=== PATIENT | male | born 1995 | race Caucasian/White ===

== ENCOUNTER 2018-01-23 13:08 | Observation (INO) ==
--- NOTE | 2018-01-23 14:09 | ERNOTE ---
Abdominal HPI - Narrative Date of Service: 01/23/18 - General Chief Complaint: Abdominal Pain Time Seen by Provider: 01/23/18 13:56 Source: patient Exam Limitations: no limitations - Immun/Allergies/Home Medications Immunizatons: IMMUNIZATION HX Immunizations Up to Date Yes History of Influenza Vaccine No Hx Pneumococcal Vaccination No Allergies/Adverse Reactions: Allergies No Known Allergies Allergy (Verified 01/23/18 18:56) Home Medications: HOME MEDICATIONS Dicyclomine HCl [Bentyl] 10 mg PO TID #30 capsule 01/21/18 [Last Taken Unknown] Lansoprazole/Amoxiciln/Clarith [Prevpac Patient Pack] 1 pkt PO BID #27 pkg 01/21 [Last Taken Unknown] - Pain Score Pain Score #1 Pain Score: 8 Abdominal Pain Onset Location: RUQ - History of Present Illness Narrative: 22yo, M, presents to ER with R. lower chest pain/RUQ pain, which has been present since 01/19/18. States he took his weight lifting supplement E [place]-T, [place] Mass supplements at the same time. [place] as though the pills "got stuck ", he drank a lot of water, which improved, but did not resolve the symptoms. Then on 01/19/18 felt like pain steadily increased. He was seen at the [facility] 01/20/18 and dx with gastroenteritis and started on Zantac. He then returned the followed day, 01/21/18, and was sent to ER. He was dx with mono and CT scan performed. He was started on tx for H. Pylori, which he has been taking until today. Last pm and today, symptoms felt worse and kept him up all night with pain, which he describes "severe burning." Has not drank any fluids since last pm, due to the discomfort. Last solid food intake was 01/19/18. Date (Duration): 01/19/18 Timing: getting worse Quality: severe, burning Modifying Factors - (Worsens): Present: other - drinking fluids Associated Symptoms: Present: vomiting - dark green x1 daily. Absent: diarrhea- gross blood, diarrhea-mucous, fatigue, fever/chills Review of Systems - Review of Systems Constitutional: Absent: fever, chills, fatigue Respiratory: Present: cough. Absent: shortness of breath, wheezing Cardiology: Present: chest pain - R. lower. Absent: palpitations, edema Gastrointestinal/Abdominal: Present: nausea, vomiting, abdominal pain - RUQ. Absent: diarrhea Genitourinary: Absent: frequency, pain, dysuria, hematuria Musculoskeletal: Absent: back pain Skin: Absent: rash - Patient's Past Medical History Patient History - Medical: No pertinent hx Patient History - Cardiac/Respiratory: No pertinent hx Patient History - Cancer: No Hx of Cancer Patient History - Surgical Procedures: No surgical history Patient History - Other: None - Family History Mother Family History - Medical: No pertinent hx Family History - Cardiac/Respiratory: No pertinent hx Family History - Cancer: No pertinent family hx Father Family History - Medical: No pertinent hx Family History - Cardiac/Respiratory: No pertinent hx Family History - Cancer: No pertinent family hx - Social History Psych History: No pertinent hx Alcohol Use: none Drug Use: none - Immunizations Immunizations Up to Date: Yes Hx Pneumococcal Vaccination: No History of Influenza Vaccine: No Physical Exam - Physical Exam General Appearance: Present: wd/wn, alert Respiratory: Present: no respiratory distress, normal breath sounds. Absent: rales, rhonchi, wheezing Cardiovascular/Chest: Present: regular rate, rhythm, no murmur Gastrointestinal/Abdominal: Present: normal bowel sounds, soft, no organomegaly , tenderness - epigastric region. Absent: rebound, McBurney sign Neurological Exam: Present: alert, oriented, normal mood/affect Skin Exam: Present: normal color, warm/dry ED Progress - Date and Time Seen: Date and Time: 01/23/18 15:00 Reported symptoms suggestive of gastric ulcer. Cardiac evaluation performed due to reported pain to epigastric region and extending up sternal region. Troponin returned elevated at 1.184. Reviewed EKG and Troponin with Dr. Atwood, he feels this is unlikely to be cardiac related and recommended repeat Troponin in 3 hours from initial test. 01/23/18 16:05 Reviewed labs and xray results with pt and mother. He reports complete resolution with GI cocktail administered earlier today for approx 25 min, then pain gradually increased. Discussed elevated Troponin and recommendations of Dr. Atwood to repeat Troponin in 3 hours 01/23/18 17:55 Repeat Troponin 1.196. Discussed with Dr. Atwood, he recommended contacting precision filer hand doctor for admission. 01/23/18 18:00 Reviewed HPI, lab results and EKG findings with Dr. Arriaga. He requests pt be admitted to observation with repeat trop and ekg q6h. He agrees that symptoms seem more GI in nature and requests to continue with Carafate and Protonix. Discussed all results with pt and mtr, along with POC for admission to OBS. - Results and Orders Patient's Lab Results:: I have reviewed the patient's lab results. Results and Orders: Laboratory Tests 01/23/18 14:23 Sodium 140 Plasma Sodium 140 Potassium 3.9 Chloride 99 Carbon Dioxide 27.1 Anion Gap 17.8 H BUN 18 Creatinine 1.54 H Est GFR (Non-Af Amer) 59 L BUN/Creatinine Ratio 11.7 Random Glucose 93 Calcium 9.6 Calcium Adj for Albumin 9.4 Total Bilirubin 0.8 AST 12 ALT 30 Alkaline Phosphatase 71 Troponin I 0.184 H* C-Reactive Prot, Quant 16.9 H Total Protein 8.9 H Albumin 3.8 Amylase 43 Lipase 92 Laboratory Tests 01/23/18 17:25 Troponin I 0.196 H* Laboratory Tests 01/23/18 01/23/18 14:23 14:23 WBC 9.6 RBC 5.65 Hgb 16.1 Hct 46.7 MCV 82.7 MCH 28.5 MCHC 34.5 RDW 13.6 Plt Count 265 MPV 8.7 Neutrophils % (Manual) 72 Lymphocytes % (Manual) 10 L Monocytes % (Manual) 18 H Neutrophils # (Manual) 6.9 H Lymphocytes # (Manual) 1.0 L Monocytes # (Manual) 1.7 H Platelet Estimate Normal RBC Morphology Normal ESR 55 H Laboratory Tests 01/23/18 16:00 Urine Opiates Screen Negative Barbiturate Screen Negative Ur Phencyclidine Scrn Negative Urine Amphetamine Negative U Benzodiazepines Scrn Negative Urine Cocaine Screen Negative Urine Marijuana (THC) Negative - Vital Signs Patient's Vital Signs:: I have reviewed the patient's vital signs. Vital Signs: Vital Signs 01/23/18 13:09 Temperature 36.8 C Pulse Rate 81 Respiratory 12 Rate Blood Pressure 140/71 O2 Sat by Pulse 95 Oximetry Selected Entries 01/23/18 18:00 Temperature 38.0 C H Temperature Temporal Artery Source Scan Pulse Rate 84 Respiratory 16 Rate Blood Pressure 142/77 Blood Pressure 98 Mean O2 Sat by Pulse 97 Oximetry Oxygen Delivery Room Air Method - EKG EKG: NSR, nonspecific ST T wave changes EKG read: Reviewed by me - and Dr. Atwood - X-Ray X-Ray #1 X-Ray: chest Interpretation: Reviewed by me X-ray Comments: [facility] PATIENT RADIOLOGY STUDY REPORT Patient Patient Name:SUSIE PADILLA Date: 1995 Sex: M Order Number: [id number] Unique Exam ID: [id number] Exam Requested: ABDCOMWDEC - Abdomen Flat W/ Upright * Date Scheduled: 01-23-2018 03:02 PM Study Priority: Requesting Service: Requesting Physician: Lakesha Goodwin Reason for Exam: abd pain Radiological Report : [place] [address] NAME: SUSIE PADILLA : 1995 MR #: [id number] CC: LOC: ADM DATE: X-RAY REPORT [id number] RAD/Abdomen Flat W/ Upright * Exam Date: 01/23/2018 15:02 Ordering Physician: Lakesha Goodwin HISTORY: abd pain TWO VIEW ABDOMEN / ABDOMINAL SERIES COMPARISON: 01/21/2018 Technique: Supine and erect AP projections of the abdomen and pelvis were obtained. Findings: There are small amounts of gas identified within the bowel. I do not see evidence for gaseous dilatation of the bowel, air-fluid levels, or free air. There is a small amount residual oral contrast within the colon from a prior CT scan dated 01/21/2018. The visualized lung bases are clear. I am not convinced of calcified radiodensities overlying the kidneys. IMPRESSION: 1. NONSPECIFIC BOWEL GAS PATTERN Electronically signed by Harshal Phelps M.D.. Harshal Phelps MD Dict: 01/23/18 1544 Typed: 01/23/18 1544/ 01/23/18 1547 01/23/18 1550 , Approved by: Harshal Phelps Approval Date: 01-23-2018 Approval Time: 03:44 PM THIS REPORT WAS RECEIVED FROM THE [employer] SYSTEM - Progress/Reassessment Chief Complaint: Abdominal Pain Progress:: Unchanged Departure Clinical Impression: Gastritis Qualifiers: Gastritis type: unspecified gastritis Chronicity: acute Gastritis bleeding: without bleeding Qualified Code(s): K29.00 - Acute gastritis without bleeding Chest pain Qualifiers: Chest pain type: unspecified Qualified Code(s): R07.9 - Chest pain, unspecified - Departure Disposition: Short Term Hospital Inpatient Condition: Fair
[2018-01-23] MEDS ORDERED: SUCRALFATE 1 G/10 ML UDC PO ONE ×2 (14:15→17:42)
[2018-01-23] MEDS ORDERED: MAG HYDROX/ALUMINUM HYD/SIMETH 30 ML UDC PO ONE ×2 (14:15→17:42)
[2018-01-23] MEDS ORDERED: LIDOCAINE HCL 20 ML UDC PO ONE (14:15)
[2018-01-23] MEDS ORDERED: NORMAL SALINE 1,000 ML IV ONE ×2 (14:17→16:12)
[2018-01-23 14:32] LABS: Hematocrit 46.7 % (42.0-52.0); Hemoglobin 16.1 gm/dL (13.5-18.0); Mean Cell Volume 82.7 fl (78-100); Mean Corpuscular Hemoglobin 28.5 pg (27-31); Mean Corpuscular Hgb Conc 34.5 g/dl (32-36); Mean Platelet Volume 8.7 fl (6.0-9.5); Platelet Count 265 K/mm3 (150-450); Red Blood Count 5.65 M/mm3 (4.7-6.0); Red Cell Distribution Width 13.6 % (11.5-14.0); White Blood Count 9.6 K/mm3 (4.0-10.5)
[2018-01-23 14:39] LABS: Total Cells Counted 100
[2018-01-23 14:50] LABS: Albumin * 3.8 gm/dl (3.4-5.0); Anion Gap 17.8 mmol/L (6.8-13.8); BUN/Creatinine Ratio 11.7 (9.0-21.6); Bilirubin, Total 0.8 mg/dL (0.0-1.1); Ca. Corrected For Albumin 9.4 mg/dL (8.4-10.2); Calcium * 9.6 mg/dL (7.9-10.9); Carbon Dioxide 27.1 mmol/L (24-32.6); Potassium 3.9 mmol/L (3.4-4.6); Total Protein 8.9 gm/dL (6.2-8.2)
[2018-01-23 14:51] LABS: Troponin I 0.184 ng/ml (0.00-0.10)
[2018-01-23 14:58] LABS: CRP 16.9 mg/dL (0.0-0.9)
[2018-01-23 15:17] LABS: Lymphocyte 10 % (20-51); Monocyte 18 % (0-9); Neutrophil 72 % (42-75); Neutrophil # 6.9 K/mm3 (1.3-6.0); Platelet Estimate Normal (NORMAL); RBC Morphology Normal (NORMAL)
[2018-01-23] MEDS ORDERED: PANTOPRAZOLE SODIUM 40 MG TABLET.EC PO ONE (16:15)
[2018-01-23 16:18] LABS: Cocaine Ur Negative (NEGATIVE); Urine Barbiturate Negative (NEGATIVE); Urine Benzodiazepines Negative (NEGATIVE); Urine Opiates Negative (NEGATIVE); Urine PCP Negative (NEGATIVE); Urine THC Negative (NEGATIVE)
[2018-01-23] MEDS ORDERED: PANTOPRAZOLE SODIUM 40 MG in NORMAL SALINE 100 ML IV ONE (16:22)
[2018-01-23] MEDS ORDERED: RINGER'S SOLUTION,LACTATED 1,000 ML IV ONE (19:22)
--- NOTE | 2018-01-23 19:39 | HP ---
Chief Complaint - Chief Complaint Date of Service: 01/23/18 Time of Service: 19:38 Chief Complaint: epigastric pain History of Present Illness: 22yo, M, without any prior medical history presented to ER with right lower chest pain, which has been present since 01/19/18. Pt states that on this day he took his weight lifting supplement, E [place]-T, [place] and felt as though the pills "got stuck", he drank a lot of water, which improved, but did not resolve the symptoms the pain since then steadily increased. He was seen at the [facility] 01/20/18 and dx with gastroenteritis and started on Zantac. He then returned the followed day, 01/21/18, and was sent to ER. He was dx with mono and CT scan performed which did not show any abnormalities. He was started on tx for H. Pylori, which he has been taking until today. Last pm and today, symptoms felt worse and kept him up all night with pain, which he describes "severe burning." Has not drank any fluids since last pm, due to the discomfort. Last solid food intake was 01/19/18. Pt denies any other associated symptoms, he has been taking the above medications as prescibed. He states that nothing alleviates the pain, although any type of intake exacerbates the pain rating it a 9/10 and burning in nature without radiation. In the ER pt was still without pain relief. Laboratory findings of DIAMOND, Troponin was found to be elevated at 0.184 on repeat it was actually even more elevated at 0.196. EKG NSR, nonspecific ST T wave changes. Due to his elevated and increasing enzymes he will be admitted for dehydration with DIAMOND and elevated troponin. - Patient's Past Medical History Patient History - Medical: No pertinent hx Patient History - Cardiac/Respiratory: No pertinent hx Patient History - Cancer: No Hx of Cancer Patient History - Surgical Procedures: No surgical history Patient History - Other: None - Family History Mother Family History - Medical: No pertinent hx Family History - Cardiac/Respiratory: No pertinent hx Family History - Cancer: No pertinent family hx Father Family History - Medical: No pertinent hx Family History - Cardiac/Respiratory: No pertinent hx Family History - Cancer: No pertinent family hx - Social History Living Situations: significant other Psych History: No pertinent hx Smoking Status: Never smoker Have you smoked in the past 12 months: No Alcohol Use: none Drug Use: none - Immunizations Immunizations Up to Date: Yes Hx Pneumococcal Vaccination: No History of Influenza Vaccine: No Review Of Systems (GEN) - Review of Systems Generalized/Overall Review: Present: No Symptoms Reported EENTM: Present: No Symptoms Reported Respiratory: Present: No Symptoms Reported. Absent: Cough, Shortness of Breath Cardiac: Present: Chest Pain - Right epigastric buring, worse with intake. Absent: Edema, Palpitations Abdominal: Absent: Nausea, Vomiting, Hematemesis, Abdominal Pain, Constipation, Diarrhea Genitourinary: Present: No Symptoms Reported Musculoskeletal: Present: No Symptoms Reported Neurological: Present: No Symptoms Reported Skin: Present: No Symptoms Reported Endocrine: Present: No Symptoms Reported Allergies/Adverse Reactions: Allergies Allergy/AdvReac Type Severity Reaction Status Date / Time No Known Allergies Allergy Verified 01/23/18 18:56 Home Medications: HOME MEDICATIONS Dicyclomine HCl [Bentyl] 10 mg PO TID #30 capsule 01/21/18 [Last Taken Unknown] Lansoprazole/Amoxiciln/Clarith [Prevpac Patient Pack] 1 pkt PO BID #27 pkg 01/21 [Last Taken Unknown] Exam - Exam Vital Signs: Vital Signs - Last Taken Temp 37.0 C 01/23/18 18:58 Pulse 73 01/23/18 18:58 Resp 16 01/23/18 18:58 BP 151/83 01/23/18 18:58 Pulse Ox 99 01/23/18 18:58 Constitutional: Present: Alert, Oriented x3, Cooperative, No distress ENT Exam: Present: normal ENT inspection, hearing grossly normal, pharynx normal , TMs normal Eye Exam: bilateral eye: normal inspection Back Exam: Present: normal inspection, no CVA tenderness, no vertebral tenderness Respiratory: Present: chest non-tender, lungs clear, normal breath sounds, no respiratory distress, no accessory muscle use Cardiovascular/Chest: Present: normal peripheral pulses, regular rate, rhythm, no chest tenderness, no edema, no gallop, no JVD, no murmur Peripheral Pulses: dorsalis-pedis (R): 2+, dorsalis-pedis (L): 2+, radial (R): 2 +, radial (L): 2+ Abdomen: Present: Normal bowel sounds, soft, nontender, nondistended, no rebound tenderness, no hepatospenomegaly, no masses Extremity: Present: normal range of motion, non-tender, normal inspection, no pedal edema, no calf tenderness, normal capillary refill Skin Exam: Present: normal color, warm/dry, no cyanosis Lymphatic: Present: no adenopathy Neurologic: Present: no motor/sensory deficits, alert, oriented x 3 Appearance: Present: appropriate appearance, appropriate insight, neat, no memory impairment Eye contact: Present: cooperative, good eye contact, normal speech Thoughts: Present: normal thought pattern, no apparent hallucination Diagnostic Studies: Laboratory Results Laboratory Tests 01/23/18 01/23/18 01/23/18 14:23 14:23 14:23 WBC 9.6 Hgb 16.1 Hct 46.7 Plt Count 265 Lymphocytes % (Manual) 10 L Monocytes % (Manual) 18 H Neutrophils # (Manual) 6.9 H Lymphocytes # (Manual) 1.0 L Monocytes # (Manual) 1.7 H ESR 55 H Sodium 140 Potassium 3.9 Carbon Dioxide 27.1 Anion Gap 17.8 H BUN 18 Creatinine 1.54 H Calcium Adj for Albumin 9.4 Total Bilirubin 0.8 AST 12 ALT 30 Alkaline Phosphatase 71 Troponin I 0.184 H* C-Reactive Prot, Quant 16.9 H Total Protein 8.9 H Albumin 3.8 Amylase 43 Lipase 92 01/23/18 17:25 WBC Hgb Hct Plt Count Lymphocytes % (Manual) Monocytes % (Manual) Neutrophils # (Manual) Lymphocytes # (Manual) Monocytes # (Manual) ESR Sodium Potassium Carbon Dioxide Anion Gap BUN Creatinine Calcium Adj for Albumin Total Bilirubin AST ALT Alkaline Phosphatase Troponin I 0.196 H* C-Reactive Prot, Quant Total Protein Albumin Amylase Lipase Assessment/Plan - Assessment/Plan (1) Dyspepsia Assessment: Unclear etiology from this point, likely stemming from episode of "pills getting stuck" with an erosive nature resulting in the pts pain. Has been treated ineffectively with PPI and prevepac. Will continue IV protonix while in the hospital since pt is still having severe pain with swallowing. reported minimal pain relief with GI cocktail. May need follow up with GI for UGI. -clear liquids -IV protonix -repeat GI cocktail -IV Toradol x1 Problem: Acute (2) Elevated troponin Assessment: Unclear etiology, however do not believe it is related to cardiac in nature, although given pt history of workout supplements cannot completely exclude it. Will recheck troponin Q6H and EKG, place on cafeteria monitor. -troponin Q6H -Repeat EKG -telel Problem: Acute (3) Dehydration Assessment: Pt reports PO intake since development of pain on 01/19/18. Laboratory values on revealed creat of 1.63, now 1.54. Will hydrate with an additional 1L LR and maintain a rate of 125ml/hr. Recheck labs in am. -cmp in am -1L LR bolus -MIVF 125ml/hr Problem: Acute (4) DIAMOND (acute kidney injury) Assessment: as above with dehydration Problem: Acute (5) Mononucleosis Assessment: Conservative management. Tylenol PRN for fevers and pain. Problem: Acute
[2018-01-23] MEDS ORDERED: KETOROLAC TROMETHAMINE 30 MG/ML VIAL IV ONE (19:47)
[2018-01-23] MEDS ORDERED: ACETAMINOPHEN 325 MG TABLET PO PRN (19:54)
[2018-01-23] MEDS ORDERED: LIDOCAINE HCL 20 ML UDC MM ONE (21:00)
[2018-01-23] MEDS ORDERED: BELLADONNA ALKALOIDS/PHENOBARB 60 ML BTL PO ONE (21:00)
--- NOTE | 2018-01-24 00:30 | PN ---
Progess Note - Interim Date: 01/24/18 Time: 00:25 Narrative: 01/24/18 00:25 Pt troponin continues to rise, not high enough to be consistent ACS, although cannot completely exclude. Pt continues to have pain to right mid epigastric area. No new EKG findings. Reports almost complete pain relief with Toradol injection, given this and increased inflammatory markers etiology is more consistent with pericarditis. I personally called the on-call hospitalist at [facility] to discuss case with, he recommended getting a D- Dimer and CTA to r/o PE. Pt remains hymodynamically stable. Rates pain 7/10 on right side, same as before. Will repeat EKG and troponin in 6H.
[2018-01-24] MEDS: RINGER'S SOLUTION,LACTATED 1,000 ML IV PRN ×3 (01:25→16:25)
[2018-01-24] MEDS ORDERED: KETOROLAC TROMETHAMINE 30 MG/ML VIAL IV ONE (02:00)
[2018-01-24 05:26] LABS: Hematocrit 39.2 % (42.0-52.0); Hemoglobin 13.3 gm/dL (13.5-18.0); Mean Cell Volume 82.9 fl (78-100); Mean Corpuscular Hemoglobin 28.1 pg (27-31); Mean Corpuscular Hgb Conc 33.9 g/dl (32-36); Mean Platelet Volume 8.6 fl (6.0-9.5); Platelet Count 208 K/mm3 (150-450); Red Blood Count 4.73 M/mm3 (4.7-6.0); Red Cell Distribution Width 13.4 % (11.5-14.0); White Blood Count 8.4 K/mm3 (4.0-10.5)
[2018-01-24 05:31] LABS: Total Cells Counted 100
[2018-01-24 05:50] LABS: Albumin * 2.9 gm/dl (3.4-5.0); Anion Gap 14.2 mmol/L (6.8-13.8); BUN/Creatinine Ratio 13.3 (9.0-21.6); Bilirubin, Total 0.6 mg/dL (0.0-1.1); Ca. Corrected For Albumin 9.4 mg/dL (8.4-10.2); Calcium * 8.8 mg/dL (7.9-10.9); Carbon Dioxide 26.6 mmol/L (24-32.6); Potassium 3.8 mmol/L (3.4-4.6); Total Protein 6.8 gm/dL (6.2-8.2)
[2018-01-24 05:52] LABS: Troponin I 0.3 ng/ml (0.00-0.10)
[2018-01-24] MEDS ORDERED: KETOROLAC TROMETHAMINE 30 MG/ML VIAL IV PRN (06:23)
[2018-01-24 06:27] LABS: Eosinophil 1 % (0-3); Lymphocyte 12 % (20-51); Monocyte 13 % (0-9); Neutrophil 74 % (42-75); Neutrophil # 6.2 K/mm3 (1.3-6.0); Platelet Estimate Normal (NORMAL); RBC Morphology Normal (NORMAL)
[2018-01-24] MEDS: SUCRALFATE 1 G/10 ML UDC PO SCH ×3 (07:34→16:21)
[2018-01-24] MEDS ORDERED: PANTOPRAZOLE SODIUM 40 MG in NORMAL SALINE 50 ML IV ONE (09:00)
[2018-01-24] MEDS ORDERED: LIDOCAINE HCL 20 ML UDC MM ONE (09:21)
[2018-01-24 11:02] LABS: Hematocrit 40.3 % (42.0-52.0); Hemoglobin 13.8 gm/dL (13.5-18.0); Mean Cell Volume 83.1 fl (78-100); Mean Corpuscular Hemoglobin 28.5 pg (27-31); Mean Corpuscular Hgb Conc 34.2 g/dl (32-36); Mean Platelet Volume 8.5 fl (6.0-9.5); Platelet Count 202 K/mm3 (150-450); Red Blood Count 4.85 M/mm3 (4.7-6.0); Red Cell Distribution Width 13.6 % (11.5-14.0); White Blood Count 7.6 K/mm3 (4.0-10.5)
[2018-01-24] MEDS ORDERED: LIDOCAINE HCL 20 ML UDC PO ONE (16:00)
[2018-01-24] MEDS ORDERED: BELLADONNA ALKALOIDS/PHENOBARB 60 ML BTL PO ONE (16:00)
[2018-01-24] MEDS ORDERED: MAG HYDROX/ALUMINUM HYD/SIMETH 30 ML UDC PO ONE (16:00)
[2018-01-24 16:34] LABS: Hematocrit 40.5 % (42.0-52.0); Hemoglobin 13.7 gm/dL (13.5-18.0); Mean Cell Volume 83.7 fl (78-100); Mean Corpuscular Hemoglobin 28.3 pg (27-31); Mean Corpuscular Hgb Conc 33.8 g/dl (32-36); Mean Platelet Volume 8.6 fl (6.0-9.5); Platelet Count 212 K/mm3 (150-450); Red Blood Count 4.84 M/mm3 (4.7-6.0); Red Cell Distribution Width 13.3 % (11.5-14.0); White Blood Count 7.4 K/mm3 (4.0-10.5)
--- NOTE | 2018-01-24 16:51 | DS ---
(1) Dyspepsia Problem: Acute (2) Dehydration Problem: Acute (3) Elevated troponin Problem: Acute (4) Chest pain Problem: Acute Qualifiers: Chest pain type: unspecified Qualified Code(s): R07.9 - Chest pain, unspecified (5) DIAMOND (acute kidney injury) Problem: Acute Description of Stay: Luis Angel is a 22 yo male that was admitted for chest pain and elevated troponin in the indeterminate range. There were no EKG changes and chest pain was epigastric with worsening symptoms after eating. Pain felt better with antacids and liquid lidocaine. He was admitted to observation with serial troponins and monitoring on telemetry. There were no ECG changes and troponin fluctuated without consistently rising. He had the most relief with viscous lidocaine and he was started on this prior to meals which allowed him to tolerate eating. It was suspected that he had gastrointestinal ulceration. He will be continued on PPI and he will continue to use viscous lidocaine prior to meals to help eating. He will follow up in clinic and we will likely refer to surgery for EGD if symptoms persist. He had mild acute kidney injury likely due to dehydration from not being able to eat or drink due to chest pain. This improved with hydration. Procedures Performed: none Discharge Location: Home Disposition: Home self-care Condition: Fair Discharge Activity: Activity as tolerated Discharge Diet: General/regular food - Avoid alcohol, tobacco, caffiene, chocolate, ibuprofen, aspirin, and aleve. Referrals: Junaid Arriaga DO [Staff Physician] - One Week Problem Oriented Discharge Instructions to Patient/Family: Gastritis, Adult, [id number] Additional Patient Instructions (free text): Follow up with Dr. Arriaga on February 02 at 2. Prescriptions (Any new or edited meds): Lidocaine HCl [Lidocaine HCl Viscous 2%] 10 ml PO Q3H PRN #300 ml PRN Reason: dyspepsia Complete Home Medications List: Complete Home Medication List: Dicyclomine HCl [Bentyl] 10 mg PO TID #30 capsule 01/21/18 Lansoprazole/Amoxiciln/Clarith [Prevpa Patient Pack] 1 pkt PO BID #27 pkg 01/21 Lidocaine HCl [Lidocaine HCl Viscous 2%] 10 ml PO Q3H PRN #300 ml 01/24/18
[2018-01-24 17:25] VITALS: BP 129/64
== END 2018-01-24 17:57 | disposition home or self-care (01) ==
LOC: ER 13:08 → MS 18:12
PROVIDERS: ADMIT Family Medicine; ATTEND Family Medicine
DX: K29.00 Acute gastritis without bleeding; R78.89 Finding of other specified substances, not normally found in blood; R10.13 Epigastric pain; E86.0 Dehydration; B27.90 Infectious mononucleosis, unspecified without complication; N17.9 Acute kidney failure, unspecified
CPT/HCPCS: 36415; 71275; 74019; 74020; 80053; 80307; 82150; 83690; 84484; 85007; 85025; 85027; 85379; 85652; 86140; 93005; 96361; 96365; 96366; 96375; 96376; 99284; G0378; G0479